=== PATIENT | female | born 1985 | race Caucasian/White ===

== ENCOUNTER 2016-02-22 13:27 | Emergency (ER) | payer OTHER ==
[~2016-02-22] VITALS: Ht 170.2 cm; Wt 107.0 kg
[2016-02-22 15:22] LABS: BILIRUBIN,URINE NEGATIVE (NEG); GLUCOSE,URINE NEGATIVE (NEG); NITRITE,URINE NEGATIVE (NEG); PROTEIN,URINE NEGATIVE (NEG-TRACE)
[2016-02-22 15:24] LABS: NEG OBC UR NEG; POS OBC UR POS
[2016-02-22] MEDS ORDERED: ONDANSETRON PF 4 MG/2 ML VIAL. IV ONE (15:30)
[2016-02-22] MEDS ORDERED: IV NORMAL SALINE 1000ML BAG 1,000 ML IV ONE (15:30)
[2016-02-22] MEDS ORDERED: KETOROLAC TROMETHAMINE 30 MG/ML SYRINGE. IV ONE (15:30)
[2016-02-22 15:33] LABS: BACTERIA,URINE MANY /HPF (0-FEW); RBC,URINE 0 /HPF (0-2); SQUAMOUS EPITHELIAL CELL,UR MANY /LPF
[2016-02-22 16:00] LABS: BASO # 0.1 x10^3/uL (0.0-0.2); BASO % 1 % (0-3); EOS % 1 % (0-3); HEMATOCRIT 41.1 % (36.0-47.0); HEMOGLOBIN 13.5 g/dL (12.0-15.5); LYMPH # 2.2 x10^3/uL (1.0-4.8); LYMPH % 24 % (24-48); MEAN CORPUSCULAR HEMOGLOBIN 29 pg (25-35); MEAN CORPUSCULAR HGB CONC 33 g/dL (31-37); MEAN CORPUSCULAR VOLUME 89 fL (79-100); MONO % 5 % (0-9); NEUT % 70 % (31-73); PLATELET COUNT 284 x10^3/uL (140-400); RED CELL DISTRIBUTION WIDTH 12.6 % (11.5-14.5); WHITE BLOOD COUNT 9.1 x10^3/uL (4.0-11.0)
[2016-02-22] MEDS ORDERED: IOHEXOL 300 MG/ML 75 ML VIAL IV ONE (16:00)
[2016-02-22 16:05] LABS: POTASSIUM ISTAT 3.7 mmol/L (3.5-5.0)
[2016-02-22 16:21] LABS: CALCIUM 9.5 mg/dL (8.5-10.1); GFR 64.7; POTASSIUM 4.1 mmol/L (3.5-5.1)
[2016-02-22 16:28] LABS: ALBUMIN 3.7 g/dL (3.4-5.0); TOTAL BILIRUBIN 0.3 mg/dL (0.2-1.0); TOTAL PROTEIN 7.3 g/dL (6.4-8.2)
[2016-02-22] MEDS ORDERED: METR500T PO (16:40)
[2016-02-22] MEDS ORDERED: NITR100C63 PO (16:40)
[2016-02-22] MEDS ORDERED: PROM25TA10 PO (16:40)
--- NOTE | 2016-02-22 16:41 | PHYS DOC ---
Past Medical History Past Medical History: No Pertinent History Past Surgical History: No Surgical History Alcohol Use: Heavy Drug Use: None Adult General Chief Complaint Chief Complaint: ABDOMINAL PAIN HPI HPI Patient is a 30 year old female with no significant medical history who presents with mild bilateral lower abdominal pain with cramping that began 4 days ago. Patient is also complaining of vomiting intermittently in the mornings for the last 4 days. Patient states she believes she could be because her last menstrual cycle was the end of December. Patient denies any unusual vaginal discharge. Denies any concern for STDs. She states she might also have a UTI because she has had bilateral lower back pain for 4 days. Denies any urgency frequency or dysuria. Denies any fever. Denies any diarrhea. PCP:None Review of Systems Review of Systems Constitutional: see HPI Eyes: Denies change in visual acuity, redness, or eye pain [] HENT: Denies nasal congestion or sore throat [] Respiratory: Denies cough or shortness of breath [] Cardiovascular: No additional information not addressed in HPI [] GI: lower abdominal pain, nausea, vomiting, : Denies dysuria or hematuria [] Musculoskeletal: Denies back pain or joint pain [] Integument: Denies rash or skin lesions [] Neurologic: Denies headache, focal weakness or sensory changes [] Endocrine: Denies polyuria or polydipsia [] Current Medications Current Medications Current Medications Medications (Trade) Dose Ordered Sig/Malinda Start Time Stop Time Status Last Admin Dose Admin Iohexol (Omnipaque 300 Mg/ml) 75 ml 1X ONCE 02/22/16 16:00 02/22/16 16:01 DC Ketorolac Tromethamine (Toradol) 30 mg 1X ONCE 02/22/16 15:30 02/22/16 15:38 DC 02/22/16 16:00 30 MG Ondansetron HCl (Zofran) 4 mg 1X ONCE 02/22/16 15:30 02/22/16 15:38 DC 02/22/16 16:00 4 MG Sodium Chloride (Iv Sodium Chloride 0.9% 1000ml Bag) 1,000 ml @ 1,000 mls/hr 1X ONCE 02/22/16 15:30 02/22/16 16:29 DC 02/22/16 16:00 1,000 MLS/HR Allergies Allergies Allergies Coded Allergies Type Severity Reaction Last Updated Verified Penicillins Allergy Intermediate 1/16/17 Yes Physical Exam Physical Exam Constitutional: Well developed, well nourished, no acute distress, non-toxic appearance. [] HENT: Normocephalic, atraumatic, bilateral external ears normal, oropharynx moist, no oral exudates, nose normal. [] Eyes: PERRLA, EOMI, conjunctiva normal, no discharge. [] Neck: Normal range of motion, no tenderness, supple, no stridor. [] Cardiovascular:Heart rate regular rhythm, no murmur [] Lungs & Thorax: Bilateral breath sounds clear to auscultation [] Abdomen: Bowel sounds normal, soft, no tenderness, no masses, no pulsatile masses. [] Pelvic exam External pelvic appears normal, cervix is closed, no CMT, no adnexal tenderness , small amount of white discharge noted in the vaginal vault. Skin: Warm, dry, no erythema, no rash. [] Back: No tenderness, no CVA tenderness. [] Extremities: No tenderness, no cyanosis, no clubbing, ROM intact, no edema. [] Neurologic: Alert and oriented X 3, normal motor function, normal sensory function, no focal deficits noted. [] Psychologic: Affect normal, judgement normal, mood normal. [] Current Patient Data Vital Signs Vital Signs Date Time Temp Pulse Resp B/P Pulse Ox O2 Delivery O2 Flow Rate FiO2 02/22/16 14:15 98.3 89 17 125/85 100 Room Air 98.3 Lab Values Laboratory Tests Test 02/22/16 15:00 02/22/16 15:47 02/22/16 15:54 Urine Collection Type Unknown Urine Color Yellow Urine Clarity Clear Urine pH 7.0 Urine Specific Carpenter 1.020 Urine Protein Negativemg/dL (NEG-TRACE) Urine Glucose (UA) Negativemg/dL (NEG) Urine Ketones (Stick) Negativemg/dL (NEG) Urine Blood Negative (NEG) Urine Nitrite Negative (NEG) Urine Bilirubin Negative (NEG) Urine Urobilinogen Dipstick 1.0mg/dL (0.2 mg/dL) Urine Leukocyte Esterase Small (NEG) Urine RBC 0/HPF (0-2) Urine WBC 1-4/HPF (0-4) Urine Squamous Epithelial Cells Many/LPF Urine Bacteria Many/HPF (0-FEW) Urine Mucus Marked/LPF Urine Test Negative (NEG) White Blood Count 9.1x10^3/uL (4.0-11.0) Red Blood Count 4.60x10^6/uL (3.50-5.40) Hemoglobin 13.5g/dL (12.0-15.5) Hematocrit 41.1% (36.0-47.0) Mean Corpuscular Volume 89fL (79-100) Mean Corpuscular Hemoglobin 29pg (25-35) Mean Corpuscular Hemoglobin Concent 33g/dL (31-37) Red Cell Distribution Width 12.6% (11.5-14.5) Platelet Count 284x10^3/uL (140-400) Neutrophils (%) (Auto) 70% (31-73) Lymphocytes (%) (Auto) 24% (24-48) Monocytes (%) (Auto) 5% (0-9) Eosinophils (%) (Auto) 1% (0-3) Basophils (%) (Auto) 1% (0-3) Neutrophils # (Auto) 6.4x10^3uL (1.8-7.7) Lymphocytes # (Auto) 2.2x10^3/uL (1.0-4.8) Monocytes # (Auto) 0.5x10^3/uL (0.0-1.1) Eosinophils # (Auto) 0.1x10^3/uL (0.0-0.7) Basophils # (Auto) 0.1x10^3/uL (0.0-0.2) Sodium Level 143mmol/L (136-145) Potassium Level 4.1mmol/L (3.5-5.1) Chloride Level 105mmol/L (98-107) Carbon Dioxide Level 30mmol/L (21-32) Anion Gap 8 (6-14) 19mmol/L (6-14) H Blood Urea Nitrogen 8mg/dL (7-20) Creatinine 1.0mg/dL (0.6-1.0) Estimated GFR (Cockcroft-Gault) 64.7 BUN/Creatinine Ratio 8 (6-20) Glucose Level 118mg/dL (70-99) H 114mg/dL (70-99) H Calcium Level 9.5mg/dL (8.5-10.1) Total Bilirubin 0.3mg/dL (0.2-1.0) Aspartate Amino Transferase (AST) 26U/L (15-37) Alanine Aminotransferase (ALT) 38U/L (14-59) Alkaline Phosphatase 81U/L (46-116) Total Protein 7.3g/dL (6.4-8.2) Albumin 3.7g/dL (3.4-5.0) Albumin/Globulin Ratio 1.0 (1.0-1.7) Lipase 186U/L (73-393) POC Hemoglobin 13.9g/dL (12-15) POC Hematocrit 41% (36-40) H POC Sodium 141mmol/L (135-145) POC Potassium 3.7mmol/L (3.5-5.0) POC Chloride 100mmol/L (98-110) POC Total CO2 26mmol/L (23-32) POC Blood Urea Nitrogen 6mg/dL (8-26) L POC Creatinine 0.8mg/dL (0.5-1.4) POC Ionized Calcium (Sandra) 1.25mmol/L (1.13-1.32) Laboratory Tests 02/22/16 15:47 Laboratory Tests 02/22/16 15:47 02/22/16 15:54 Microbiology 02/22/16 Wet Prep - Final, Complete EKG EKG [] Radiology/Procedures Radiology/Procedures [] Course & Med Decision Making Course & Med Decision Making Pertinent Labs and Imaging studies reviewed. (See chart for details) Patient is in the ED with vaginal discharge, concern for UTI, concern for . Her urine hCG is negative. Urine positive for UTI. CBC BMP with no acute findings. Wet prep positive for BV. Patient was discharged Macrodantin, promethazine, and Flagyl. Instructed to follow-up with her own PCP in 1-2 weeks. Provided return precautions and discharged in stable condition. Dragon Disclaimer Dragon Disclaimer This electronic medical record was generated, in whole or in part, using a voice recognition dictation system. Departure Departure Impression: Primary Impression: Bacterial vaginosis Additional Impressions: UTI (urinary tract infection) Vomiting Disposition: HOME, SELF-CARE Condition: STABLE Referrals: NO PCP (PCP) Please follow-up with your own doctor in one week Patient Instructions: Bacterial Vaginosis, Urinary Tract Infection Additional Instructions: You were seen for urinary tract infection bacterial vaginosis and vomiting. Take the prescribed medicines as ordered. follow up with your doctor in one week. Come back to the ER if symptoms worsen. Follow up with your doctor in one week. Scripts Metronidazole (Flagyl)500 Mg Tablet1 Tab PO BID #14 TAB Prov:OLIVIA FAITH APRN 02/22/16 Promethazine Hcl 25 Mg Tablet1 Tab PO PRN Q6HRS #20 TAB Prov:OLIVIA FAITH APRN 02/22/16 Nitrofurantoin Macrocrystal (Macrodantin)100 Mg Capsule1 Cap PO BID #14 CAP Prov:OLIVIA FAITH APRN 02/22/16 Problem Qualifiers Additional Impressions: UTI (urinary tract infection) Urinary tract infection type: site unspecified Hematuria presence: without hematuria Qualified Code: N39.0 - Urinary tract infection, site not specified Vomiting Vomiting type: unspecified Vomiting Intractability: non-intractable Nausea presence: unspecified Qualified Code: R11.10 - Vomiting, unspecified OLIVIA FAITH APRN Feb 22, 2016 16:41
[2016-02-22 17:10] VITALS: BP 107/68
--- NOTE | 2016-02-25 20:25 | VNOTE ---
CALL BACK NOTE CALL BACK Microbiology 02/22/16 Wet Prep - Final, Complete 02/22/16 Urine Culture - Final, Complete 02/22/16 Urine Culture Result 1 (ANAMARIA) - Final, Complete The pharmacy called they do not have the Macrobid at this time and would like to request a change in the antibiotic. Patient tested positive for urinary tract infection and test was negative. She was changed to Bactrim 1 tablet twice day for the next 7 days. NAT ARBOLEDA NP Feb 25, 2016 20:25
== END 2016-02-22 17:16 | disposition home or self-care (01) ==
LOC: ER 13:27
DX: N76.0 Acute vaginitis (principal); N39.0 Urinary tract infection, site not specified; R11.2 Nausea with vomiting, unspecified; Z88.0 Allergy status to penicillin
CPT/HCPCS: 36415; 80047; 80053; 81001; 81025; 83690; 85027; 87086; 87491; 87591; 96361; 96374; 96375; 99284; J1885; J2405; J7030; Q0111